=== PATIENT | female | born 1930 ===

== ENCOUNTER 2019-09-22 09:05 | Day surgery (SDC) | payer OTHER ==
[~2019-09-22 09:05] MED LIST: CIPRO500 MG PO; COZAAR100 MG; COZAAR25 MG PO; ELIQUIS2.5 MG PO; LANOXIN125 MCG PO; LASIX20 MG PO; NORVASC2.5 M1; PROTONIX40 MG PO; TENORMIN25 MG PO
== END 2019-09-22 18:00 | disposition home or self-care (01) ==
LOC: CIR.AMB 09:05
DX: C67.2 Malignant neoplasm of lateral wall of bladder (principal)